=== PATIENT | female | born 1965 ===

== ENCOUNTER 2021-05-10 08:10 | Day surgery (SDC) | payer OTHER ==
[~2021-05-10 08:10] MED LIST: TOPROL XL25 M1 PO
[2021-05-10] MEDS ORDERED: IBU600 MG PO (11:32)
== END 2021-05-10 16:05 | disposition home or self-care (01) ==
LOC: CIR.AMB 08:10
PROVIDERS: ATTEND Obstetrics & Gynecology Gynecology
DX: N84.0 Polyp of corpus uteri (principal); Z20.822 Contact with and (suspected) exposure to COVID-19